=== PATIENT | female | born 1970 | race Caucasian/White ===

== ENCOUNTER 2021-06-08 20:10 | Emergency (ER) | payer SELFPAY ==
[2021-06-08 20:29] VITALS: BP 119/80; PULSE 67
[2021-06-08] MEDS ORDERED: HYDROmorphone 1 MG/ML Syringe IM ONE (20:45)
--- NOTE | 2021-06-08 21:01 | EDM.PDOC ---
ED HPI GENERAL MEDICAL PROBLEM - General Chief Complaint: Lower Extremity Injury/Pain Stated Complaint: FELL AND INJURED LEFT HIP &LEG Time Seen by Provider: 06/08/21 20:41 Source of Information: Reports: Patient, RN Notes Reviewed History Limitations: Reports: No Limitations - History of Present Illness INITIAL COMMENTS - FREE TEXT/NARRATIVE: Patient is a 50-year-old female presenting to the emergency department with complaints of left hip and upper leg pain after falling. She reports that she has been having some intermittent numbness in her left foot which she attributes to "a pinched nerve ". Tonight at work, she turned and lost her balance, causing her to fall onto her left hip. She has not been unable to bear weight on the extremity since the time of the fall. Reports pain throughout her upper femur, left hip, and groin. She has not taken anything for pain thus far. Denies any previous injuries to this extremity. Left Upper Leg Pain Score (Numeric/FACES): 10 - Related Data Allergies Allergy/AdvReac Type Severity Reaction Status Date / Time No Known Allergies Allergy Verified 08/30/14 04:26 Home Meds: Home Meds . [No Known Home Meds] 06/08/21 [History] Past Medical History - Past Health History Medical/Surgical History: Denies Medical/Surgical History Endocrine/Metabolic History: Reports: Diabetes, Type I - Past Surgical History Female Surgical History: Reports: Tubal Ligation Musculoskeletal Surgical History: Reports: Other (See Below) Other Musculoskeletal Surgeries/Procedures:: left arm surgery; left foot surgery Social & Family History - Tobacco Use Tobacco Use Status *Q: Current Every Day Tobacco User Years of Tobacco use: 24 Packs/Tins Daily: 1 - Caffeine Use Caffeine Use: Reports: Soda - Recreational Drug Use Recreational Drug Use: No Review of Systems - Review of Systems Review Of Systems: Comprehensive ROS is negative, except as noted in HPI. ED EXAM, GENERAL - Physical Exam Exam: See Below General Appearance: Alert, WD/WN, No Apparent Distress, Mild Distress Respiratory/Chest: No Respiratory Distress, Lungs Clear, Normal Breath Sounds, No Accessory Muscle Use, Chest Non-Tender Cardiovascular: Normal Peripheral Pulses, Regular Rate, Rhythm, No Edema, No Gallop, No JVD, No Murmur, No Rub Extremities: Normal Inspection, No Pedal Edema, Normal Capillary Refill, Other (ROM of LLE limited d/t pain. Tenderness to palpation of the left postior hip and inner groin. No ecchymosis.) Neurological: Alert, Oriented, CN II-XII Intact, Normal Cognition, No Motor/Sensory Deficits Psychiatric: Normal Affect, Normal Mood Course - Vital Signs Last Recorded V/S: Last Vital Signs Temp 96.8 F L 06/08/21 20:28 Pulse 67 06/08/21 20:28 Resp 20 06/08/21 20:28 BP 119/80 06/08/21 20:28 Pulse Ox 100 06/08/21 20:28 - Orders/Labs/Meds Meds: Medications Discontinued Medications Generic Name Dose Route Start Last Admin Trade Name Frantzq PRN Reason Stop Dose Admin Aspirin 325 mg 06/08/21 22:01 06/08/21 22:07 Aspirin 325 Mg Tab.Ec PO 06/08/21 22:02 325 mg ONETIME ONE Administration Hydromorphone HCl 1 mg 06/08/21 20:45 06/08/21 21:05 Hydromorphone 1 Mg/Ml Syringe IM 06/08/21 20:46 1 mg ONETIME ONE Administration Oxycodone/Acetaminophen 1 tab 06/08/21 21:53 06/08/21 22:03 Acetaminophen/Oxycodone 325-5 Mg Tab PO 06/08/21 21:54 1 tab ONETIME ONE Administration - Re-Assessments/Exams Free Text/Narrative Re-Assessment/Exam: 06/08/21 22:05 X-ray left hip shows a slightly displaced superior pubic ramus fracture near the pubic symphysis on the left side. Case was discussed with orthopedist on-call at [facility] in [place], Dr. Joseph. He verbalized that this is a stable fracture. Recommend aspirin 325 mg daily, weightbearing as tolerated, and pain management. I have ordered Percocet 1 tab to be given now, aspirin 325 mg, and a front wheel walker. Patient will be prescribed Percocet through the [facility] machine. I will have her follow-up with orthopedist, Dr. Hernández, early next week. She is in agreement with this plan. Discharge instructions as documented. Departure - Departure Time of Disposition: 22:05 Disposition: Home, Self-Care 01 Condition: Good Clinical Impression: Pubic ramus fracture Qualifiers: Encounter type: initial encounter Fracture type: closed Laterality: left Qualified Code(s): S32.592A - Other specified fracture of left pubis, initial encounter for closed fracture - Discharge Information *PRESCRIPTION DRUG MONITORING PROGRAM REVIEWED*: Yes *COPY OF PRESCRIPTION DRUG MONITORING REPORT IN PATIENT ZOYA: No Instructions: Simple Pelvic Fracture, Adult Referrals: Suleman Hernández MD [Physician] - Forms: ED Department Discharge Additional Instructions: You were seen in the emergency department today for pain in your left hip after falling. X-rays are completed and show that you have a superior pubic ramus fracture. This is a stable fracture which will heal over time. Recommend that you take aspirin 325 mg daily to prevent blood clot formation over the area of the fracture. You may bear weight on the extremity as tolerated. I would recommend routine Tylenol and ibuprofen for pain. For pain not relieved by this, you have been provided a prescription for Percocet. Use this only as prescribed. You may ice over your pubic symphysis intermittently for the next few days. Use the walker for mobility. Referral has been sent to orthopedist, Dr. Hernández. Contact his office on Thursday to set up a follow-up appointment. You must be off from work until cleared to return by orthopedics. Return to ER for any new or worsening symptoms. Sepsis Event Note (ED) - Evaluation Sepsis Screening Result: No Definite Risk
--- NOTE | 2021-06-08 21:36 | CR ---
Pelvis and left hip: AP view of the pelvis was obtained as well as AP and frog leg lateral views of the left hip. Comparison: No prior hip or pelvis imaging is available. Fracture is identified within the superior pubic ramus near the pubic symphysis with minimal displacement. Joint spaces within both hips are maintained. Sacroiliac joints are normal. No additional fracture or other bony abnormality is appreciated. Impression: 1. Slightly displaced superior pubic ramus fracture near the pubic symphysis on the left side. 2. AP pelvis and two-view hip exam is otherwise unremarkable. Diagnostic code #3
--- NOTE | 2021-06-08 21:42 | CR ---
Left femur: AP and lateral views of the left femur were obtained. Comparison: No prior femur study, previous left hip and pelvis study performed on the same day. Fracture is noted within the superior pubic ramus near the pubic symphysis on the left side. Joint space within the left hip is preserved. There is mild joint space narrowing noted within the medial compartment of the left knee. No additional fracture or other abnormality is appreciated. Impression: 1. Superior pubic ramus fracture near the pubic symphysis on the left side. 2. Mild medial joint space narrowing within the left knee. 3. No other acute fracture is seen. Diagnostic code #3
[2021-06-08] MEDS ORDERED: Acetaminophen/oxyCODONE 325-5 MG Tab PO ONE (21:53)
[2021-06-08] MEDS ORDERED: Aspirin 325 MG Tab.EC PO ONE (22:01)
== END 2021-06-08 22:35 | disposition home or self-care (01) ==
LOC: JD.ED 20:10
DX: S32.592A Other specified fracture of left pubis, initial encounter for closed fracture (principal); E10.9 Type 1 diabetes mellitus without complications; Z72.0 Tobacco use; W18.39XA Other fall on same level, initial encounter; Y99.0 Civilian activity done for income or pay
CPT/HCPCS: 73502; 73552; 96372; 99283; A9270; J1170; 99282

== ENCOUNTER 2022-11-18 12:00 | Emergency (ER) | payer SELFPAY ==
[2022-11-18] MEDS ORDERED: Sodium Chloride 0.9% 10 ML Syringe FLUSH PRN ×2 (13:31→15:18)
[2022-11-18] MEDS ORDERED: Iopamidol 612 MG/ML 100 ML Bottle IVPUSH ONE (15:18)
[2022-11-18 19:19] VITALS: BP 96/67; PULSE 72
== END 2022-11-18 19:20 | disposition home or self-care (01) ==
LOC: JD.ED 12:00
DX: K70.11 Alcoholic hepatitis with ascites (principal); E80.7 Disorder of bilirubin metabolism, unspecified; E10.9 Type 1 diabetes mellitus without complications; F17.210 Nicotine dependence, cigarettes, uncomplicated; Z79.899 Other long term (current) drug therapy
CPT/HCPCS: 36415; 74177; 74177-26; 80053; 82140; 83690; 85025; 85610; 86140; 99284; J3490; Q9967

== ENCOUNTER 2023-11-18 12:58 | Emergency (ER) | payer SELFPAY ==
[2023-11-18 20:19] VITALS: BP 115/65; PULSE 65
== END 2023-11-18 15:08 | disposition home or self-care (01) ==
LOC: JD.ED 12:58
DX: M25.562 Pain in left knee (principal); E10.9 Type 1 diabetes mellitus without complications; W00.9XXA Unspecified fall due to ice and snow, initial encounter
CPT/HCPCS: 73562-26-LT; 73562-LT; 99283